=== PATIENT | male | born 1975 ===

== ENCOUNTER 2020-06-07 13:04 | Emergency (ER) | payer BC ==
[2020-06-07] MEDS ORDERED: Ondansetron 4 MG Tab.DIS ONE (13:30)
--- NOTE | 2020-06-07 13:38 | EDM.PDOC ---
ED HPI GENERAL MEDICAL PROBLEM - General Chief Complaint: General Stated Complaint: FELL AND HIT HIS HEAD LAST EVENING Time Seen by Provider: 06/07/20 13:10 Source of Information: Reports: Patient History Limitations: Reports: No Limitations - History of Present Illness INITIAL COMMENTS - FREE TEXT/NARRATIVE: presented to the ER with a c/o dizziness and nausea. Reports that he is [place]. He reports drinking beers all day yesterday - around 11 beers in 12 hrs. last drink was at 10pm. He reports that last thing he remembers is trying to get to the restroom before passing out all night long. He admits that he might fell on his face before passing out. Patient denies headache or neck pain. He woke up this morning nauseous, and feeling a little dizzy. Couldn't drink enough water in and decided to come to the ER. Denies tingling or numbness. No weakness. no speech or vision problems. He reports that he doesn't usually drink this much of alcohol but just because he is on a fishing trips with his friends from school. Past Medical History - Past Health History Medical/Surgical History: Denies Medical/Surgical History Cardiovascular History: Reports: None Respiratory History: Reports: None Gastrointestinal History: Reports: None ED ROS GENERAL - Review of Systems Review Of Systems: See Below Constitutional: Reports: No Symptoms HEENT: Reports: No Symptoms Respiratory: Reports: No Symptoms Cardiovascular: Reports: No Symptoms Endocrine: Reports: No Symptoms GI/Abdominal: Reports: Nausea Skin: Reports: No Symptoms Neurological: Reports: No Symptoms. Denies: Headache ED EXAM, GENERAL - Physical Exam Exam: See Below Exam Limited By: No Limitations General Appearance: Alert, WD/WN, No Apparent Distress Eye Exam: Bilateral Eye: EOMI, PERRL Nose: Normal Inspection Throat/Mouth: Normal Inspection, Normal Teeth Head: Atraumatic, Normocephalic Neck: Normal Inspection, Supple, Non-Tender, Full Range of Motion Respiratory/Chest: No Respiratory Distress, Lungs Clear, Normal Breath Sounds, No Accessory Muscle Use Cardiovascular: Normal Peripheral Pulses, Regular Rate, Rhythm Peripheral Pulses: 2+: Carotid (L), Carotid (R), Brachial (L), Brachial (R) GI/Abdominal: Normal Bowel Sounds, Soft, Non-Tender Back Exam: Normal Inspection, Full Range of Motion Neurological: Alert, Oriented, CN II-XII Intact, Normal Gait Skin Exam: Warm, Dry Course - Vital Signs Last Recorded V/S: Last Vital Signs Temp 35.9 C L 06/07/20 14:07 Pulse 80 06/07/20 14:07 Resp 16 06/07/20 14:07 BP 127/85 06/07/20 14:07 Pulse Ox 99 06/07/20 14:07 - Orders/Labs/Meds Orders: Active Orders 24 hr Category Date Time Status Lactated Ringers [Ringers, Lactated] 1,000 ml Med 06/07/20 15:15 Active IV BOLUS Medication Orders Lactated Ringer's (Ringers, Lactated) 1,000 mls @ 999 mls/hr IV BOLUS RUSTY Last Admin: 06/07/20 15:19 Dose: 999 mls/hr Documented by: Meds: Medications Generic Name Dose Route Start Last Admin Trade Name Freq PRN Reason Stop Dose Admin Lactated Ringer's 1,000 mls @ 999 mls/hr 06/07/20 15:15 06/07/20 15:19 Ringers, Lactated IV 999 mls/hr BOLUS RUSTY Administration Discontinued Medications Generic Name Dose Route Start Last Admin Trade Name Freq PRN Reason Stop Dose Admin Sodium Chloride 1,000 mls @ 999 mls/hr 06/07/20 13:28 06/07/20 14:01 Normal Saline IV 06/07/20 14:28 999 mls/hr .BOLUS ONE Administration Ondansetron HCl 4 mg 06/07/20 13:29 06/07/20 14:02 Zofran Odt PO 06/07/20 13:30 4 mg ONETIME ONE Administration - Re-Assessments/Exams Free Text/Narrative Re-Assessment/Exam: vitals were obtained IVF bolus Zofran for nausea 06/07/20 15:08 after fluids, patient reports feeling much better. Dizziness has resolved nausea is gone as well tolerated PO intake in the ER with out problems Ambulating without complaints back to normal no dizziness or headache Departure - Departure Time of Disposition: 15:20 Disposition: Home, Self-Care 01 Condition: Good Clinical Impression: Hangover effect, Dizziness - Discharge Information *PRESCRIPTION DRUG MONITORING PROGRAM REVIEWED*: Not Applicable *COPY OF PRESCRIPTION DRUG MONITORING REPORT IN PATIENT SONIDO: Not Applicable Referrals: PCP,None [Primary Care Provider] - Forms: ED Department Discharge Sepsis Event Note (ED) - Focused Exam Vital Signs: Vital Signs Temp Pulse Resp BP Pulse Ox 06/07/20 14:07 35.9 C L 80 16 127/85 99 - Problem List & Annotations (1) Dizziness SNOMED Code(s): 679981661, 243734175 Code(s): R42 - DIZZINESS AND GIDDINESS Status: Acute Priority: Medium Current Visit: Yes (2) Hangover effect SNOMED Code(s): 67575212 Code(s): F10.129 - ALCOHOL ABUSE WITH INTOXICATION, UNSPECIFIED Status: Acute Priority: Medium Current Visit: Yes Qualifiers: Complication of substance-induced condition: uncomplicated Qualified Code(s): F10.120 - Alcohol abuse with intoxication, uncomplicated - Problem List Review Problem List Initiated/Reviewed/Updated: Yes - My Orders Last 24 Hours: My Active Orders 06/07/20 15:15 Lactated Ringers [Ringers, Lactated] 1,000 ml IV BOLUS - Assessment/Plan Last 24 Hours: My Active Orders 06/07/20 15:15 Lactated Ringers [Ringers, Lactated] 1,000 ml IV BOLUS Plan: increase fluids intake to 3 lit per day take nausea medication as needed recommend moderate alcohol consumption return to the ER if headache got worse, nausea, weakness, numbness or any concerns
[2020-06-07] MEDS: Sodium Chloride 0.9% 1,000 ML IV ONE (14:01)
[2020-06-07] MEDS: Ondansetron 4 MG Tab.DIS PO ONE (14:02)
[2020-06-07] MEDS: Lactated Ringers 1,000 ML IV SCH (15:19)
== END 2020-06-07 15:57 | disposition home or self-care (01) ==
LOC: LB.ED 13:04
DX: F10.129 Alcohol abuse with intoxication, unspecified (principal); R42 Dizziness and giddiness
CPT/HCPCS: 99283; A9270-GY; J7030; J7120